=== PATIENT | female | born 1985 | race Caucasian/White ===

== ENCOUNTER → 2017-08-25 | Outpatient (CLI) | payer OTHER ==
--- NOTE | 2017-08-25 13:43 | MAMMOGRAPHY REPORT ---
ULTRASOUND OF LEFT BREAST: 08/25/2017 CLINICAL HISTORY: 32-year-old woman presents for evaluation of the left axilla. She noticed a lump i n the left axilla for the past 8 months but more recently developed pain in the area of lump. She wa s treated with Keflex for possible infection. The pain improved but the mass persisted. Question po ssibility of abscess versus a lymph node. The patient's was present in the room but the conversation/consultation was performed with fahad frazier use of a solar sales associate via telephone. COMPARISON: No prior exams were available for comparison. FINDINGS: Targeted ultrasound was performed in the area of lump pointed out by the patient, and also in the area of pain which traveled inferiorly from the axilla down into the posterior superior aspec t of the left breast. In the left axilla, 2 morphologically normal lymph nodes are identified. The first and most superficial lymph node measures 1.6 cm in length, with a thin cortex. The second lymp h node identified measures 6.9 mm with a thin cortex of 2 mm. Currently there is no evidence of susp icious lymphadenopathy or a drainable fluid collection in the left axilla. Additional scanning perfo rmed in the 12:00, 1:00 and 2:00 axes of the left breast in the areas of prior pain pointed out by fahad frazier patient, sonographically normal tissue is seen without a suspicious solid or cystic mass. Given the location of the lump high in the left axilla, it is doubtful this area would be included in the image mammographically and therefore mammography was deferred. IMPRESSION: ACR BI-RADS CATEGORY 2: BENIGN There is no sonographic evidence of malignancy, suspicious for adenopathy or drainable fluid collecti on in the area of lump and pain within the left axilla and far superior left breast, pointed out by alec freeman patient. Therefore, clinical follow-up is recommended and if the lump appears increased in size o r pain returns, consider repeat ultrasound. These results and recommendations were discussed with the patient and her via a [place]ic inter preter at the time of the exam. Alejandra Waite M.D. ay/:08/25/2017 10:54:52 Attending Technologist: Bala GARCIA)(M), [facility] Cap Blocker: Dr. Alejandra Waite, [facility] letter sent: Normal /2 BI-RADS Code: ACR BI-RADS Category 2: Benign
== END | disposition home or self-care (01) ==
LOC: C.MAMM 09:43
PROVIDERS: ATTEND Physician Assistant Medical
DX: N63.20 Unspecified lump in the left breast, unspecified quadrant (principal); N64.4 Mastodynia; M79.622 Pain in left upper arm

== ENCOUNTER 2017-12-10 09:42 | Emergency (ER) | payer OTHER ==
[~2017-12-10] VITALS: Ht 154.9 cm; Wt 59.2 kg
[2017-12-10 09:49] VITALS: TEMP 36.4; Ht 154.9 cm; Wt 59.2 kg
[2017-12-10] MEDS ORDERED: SODIUM CHLORIDE 0.9% 1000ML 2,000 ML IV STA (10:18)
[2017-12-10] MEDS ORDERED: ONDANSETRON INJ 2 MG/ML 2 ML VIAL IV STA (10:18)
[2017-12-10] MEDS ORDERED: ACETAMINOPHEN 500 MG TAB PO STA (10:18)
--- NOTE | 2017-12-10 10:36 | DIAGNOSTIC IMAGING REPORT ---
CHEST ONE VIEW PORTABLE CLINICAL HISTORY: Abdominal pain. COMPARISON STUDY: No previous studies for comparison. FINDINGS: Lung volumes are normal. No pneumothorax or pleural effusion is noted. Lungs are clear. Cardiac size is normal. Mediastinal contours are normal. There is no evidence for pulmonary edema. IMPRESSION: No acute cardiopulmonary findings. Electronically signed by: Van Robledo M.D. 12/10/2017 10:35 AM Dictated Date/Time: 12/10/2017 10:34 AM
[2017-12-10 11:00] LABS: BASO % 0.4 %; BASO ABS # 0.03 K/uL (0-0.2); EOS ABS # 0.07 K/uL (0-0.5); HEMATOCRIT 35.6 % (37-47); HEMOGLOBIN 11.9 g/dL (12.0-16.0); IG# 0.01 K/uL (0.00-0.02); LYMPH % 23.1 %; LYMPH ABS # 1.61 K/uL (1.2-3.4); MEAN CELL VOLUME 86.8 fL (80-100); MEAN CORPUSCULAR HGB CONC 33.4 g/dl (32-36); MEAN PLATELET VOLUME 10.5 fL (7.4-10.4); MONO % 6.8 %; MONO ABS # 0.47 K/uL (0.11-0.59); NEUT % 68.6 %; NEUT ABS # 4.77 K/uL (1.4-6.5); PLATELET COUNT 286 K/uL (130-400); RED CELL DISTRIBUTION WIDTH CV 13.3 % (11.5-14.5); RED CELL DISTRIBUTION WIDTH SD 42.5 fL (36.4-46.3); WHITE BLOOD COUNT 6.96 K/uL (4.8-10.8)
[2017-12-10 11:18] LABS: ALT/SGPT 17 U/L (12-78); AST/SGOT 11 U/L (15-37); BLOOD UREA NITROGEN 15 mg/dl (7-18); CALCIUM 8.8 mg/dl (8.5-10.1); CARBON DIOXIDE 26 mmol/L (21-32); CREATININE 0.86 mg/dl (0.60-1.20); GLUCOSE 89 mg/dl (70-99); LIPASE 178 U/L (73-393); POTASSIUM 3.9 mmol/L (3.5-5.1); SODIUM 135 mmol/L (136-145)
[2017-12-10 11:23] LABS: ALKALINE PHOSPHATASE 45 U/L (45-117)
--- NOTE | 2017-12-10 11:28 | EMERGENCY ROOM VISIT NOTE ---
History Report prepared by Frank: Camille Taylor Under the Supervision of: Dr. Byron Doyle M.D. First contact with patient: 10:01 Chief Complaint: ABDOMINAL PAIN Stated Complaint: FAINT, ABDOMINAL PAIN, PERIOD, VOMITING History of Present Illness The patient is a 32 year old female who presents to the Emergency Room with complaints of persistent lightheadedness since this morning. The patient states that she went to make coffee this morning when she felt lightheaded. She states that she went to lie down and put her legs up to rest. She thought the sensation passed, though she started to feel dizzy again and she called out for her for help. She states the lightheadedness is worsened when she is sitting up. The patient has a history of passing out when she sees blood. Her cycle started today and she states that it is normal heavy and painful. She states that she does not normally pass out from her own cycles. The reports that the patients PCP suspects that she has endometriosis. She states the cramping and bleeding that she is having is typical for her. He states that he found the patient on the floor awake, though she briefly passed out and her eyes rolled to the back of her head and her lips were quivering. He states that she then felt stiff, though everything resolved after one minute. She reports abdominal pain and a mild headache. She currently rates her pain a 10/10 in severity. She denies any nausea, vomiting, diarrhea, fevers, chills, congestion , or recent illness. She has been eating and drinking as normal. She denies any chance of and states that her cycle began on time. She reports giving four years ago. She was seen at her PCPs 20 days ago to have a laboratory workup, which showed normal. Source of History: patient, spouse/significant other Onset: this morning Position: head (brain) Symptom Intensity: 10/10 Quality: other (lightheadedness) Timing: other (persistent) Modifying Factors (Worsening): other (sitting up) Associated Symptoms: + headache, + abdominal pain, No fevers, No chills, No nausea, No vomiting, No diarrhea Note: She notes lightheadedness, passing out, and dizziness. She denies any congestion or recent illness. Review of Systems See HPI for pertinent positives and negatives. A total of ten systems were reviewed and were otherwise negative. Past Medical & Surgical Medical Problems: (1) Menorrhagia (2) Syncope Surgical Problems: (1) H/O section Family History No pertinent family history Social History Smoking Status: Never Smoker Smokeless Tobacco Use: No Alcohol Use: none Drug Use: none Marital Status: Housing Status: lives with significant other Occupation Status: unemployed Current/Historical Medications Scheduled Naproxen (Naproxen), 200 MG PO Q12 Allergies Coded Allergies: No Known Allergies (Unverified , 12/10/17) Physical Exam Vital Signs Date Time Temp Pulse Resp B/P (MAP) Pulse Ox O2 Delivery O2 Flow Rate FiO2 12/10/17 13:02 55 18 97/55 100 Room Air 12/10/17 12:15 70 18 98/56 100 Room Air 12/10/17 11:14 59 18 100/64 100 Room Air 12/10/17 09:49 36.4 70 17 103/66 100 Room Air Physical Exam GENERAL: Awake, alert, fatigued-appearing, in no distress HENT: Normocephalic, atraumatic. Oropharynx dry mucus membranes. EYES: Normal conjunctiva. Sclera non-icteric. NECK: Supple. No nuchal rigidity. FROM. No JVD. RESPIRATORY: Clear to auscultation. CARDIAC: Regular rate, normal rhythm. Extremities warm and well perfused. Pulses equal. ABDOMEN: Soft, non-distended. Mild lower abdominal tenderness, no peritoneal signs. No rebound or guarding. No masses. RECTAL: Deferred. MUSCULOSKELETAL: Chest examination reveals no tenderness. The back is symmetrical on inspection without obvious abnormality. There is no CVA tenderness to palpation. No joint edema. LOWER EXTREMITIES: Calves are equal size bilaterally and non-tender. No edema. No discoloration. NEURO: Normal sensorium. No sensory or motor deficits noted. normal cerebellar function with [id number], alternating palms. SKIN: No rash or jaundice noted. Medical Decision & Procedures ER Provider Diagnostic Interpretation: Radiology results as stated below per my review and radiologist interpretation: CHEST ONE VIEW PORTABLE CLINICAL HISTORY: Abdominal pain. COMPARISON STUDY: No previous studies for comparison. FINDINGS: Lung volumes are normal. No pneumothorax or pleural effusion is noted. Lungs are clear. Cardiac size is normal. Mediastinal contours are normal. There is no evidence for pulmonary edema. IMPRESSION: No acute cardiopulmonary findings. Electronically signed by: Van oRbledo M.D. 12/10/2017 10:35 AM Dictated Date/Time: 12/10/2017 10:[address] OF THE HEAD WITHOUT CONTRAST CLINICAL HISTORY: Fall. Headache. COMPARISON STUDY: No previous studies for comparison. CT DOSE: 947.73 mGy.cm TECHNIQUE: Helical axial images of the head were obtained without IV contrast. Automated exposure control was utilized for the study. A dose lowering technique was utilized adhering to the principles of ALARA. FINDINGS: No acute intracranial hemorrhage, midline shift or mass effect is present. There is prominence of the ventricular system for age. A 1.2 cm periventricular white matter hypodensity within the right frontal lobe is noted. There are no findings to suggest acute dural sinus thrombosis or acute territorial infarct. Visualized portions of the sinuses and mastoid air cells are clear. There is no calvarial fracture. IMPRESSION: 1. No acute intracranial hemorrhage. 2. No calvarial fracture. 3. Slight prominence of the ventricular system for age, a nonspecific finding of questionable clinical significance. 4. Mild periventricular white matter hypodensity within the right frontal lobe which is nonspecific but unlikely to be acute. Electronically signed by: Van Robledo M.D. 12/10/2017 11:50 AM Dictated Date/Time: 12/10/2017 11:[address] OF THE CERVICAL SPINE WITHOUT CONTRAST CLINICAL HISTORY: Neck pain following fall. COMPARISON STUDY: No previous studies for comparison. TECHNIQUE: Helical axial images of the cervical spine were obtained without IV contrast. Sagittal and coronal reconstructions were viewed. A dose lowering technique was utilized adhering to the principles of ALARA. FINDINGS: The craniocervical junction is intact. There is reversal of the normal cervical lordosis. There is no acute cervical spine fracture. There is no prevertebral edema. Lung apices are clear. There is no pneumothorax within the lung apices. IMPRESSION: No acute cervical spine fracture or subluxation. Electronically signed by: Van Robledo M.D. 12/10/2017 11:55 AM Dictated Date/Time: 12/10/2017 11:51 AM Laboratory Results 12/10/17 10:38 Red Blood Count 4.10, Mean Corpuscular Volume 86.8, Mean Corpuscular Hemoglobin 29.0, Mean Corpuscular Hemoglobin Concent 33.4, Mean Platelet Volume 10.5, Neutrophils (%) (Auto) 68.6, Lymphocytes (%) (Auto) 23.1, Monocytes (%) (Auto) 6.8, Eosinophils (%) (Auto) 1.0, Basophils (%) (Auto) 0.4, Neutrophils # (Auto) 4.77, Lymphocytes # (Auto) 1.61, Monocytes # (Auto) 0.47, Eosinophils # (Auto) 0.07, Basophils # (Auto) 0.03 12/10/17 10:38 Test 12/10/17 10:38 12/10/17 11:16 White Blood Count 6.96 K/uL (4.8-10.8) Red Blood Count 4.10 M/uL (4.2-5.4) Hemoglobin 11.9 g/dL (12.0-16.0) Hematocrit 35.6 % (37-47) Mean Corpuscular Volume 86.8 fL (80-100) Mean Corpuscular Hemoglobin 29.0 pg (25-34) Mean Corpuscular Hemoglobin Concent 33.4 g/dl (32-36) Platelet Count 286 K/uL (130-400) Mean Platelet Volume 10.5 fL (7.4-10.4) Neutrophils (%) (Auto) 68.6 % Lymphocytes (%) (Auto) 23.1 % Monocytes (%) (Auto) 6.8 % Eosinophils (%) (Auto) 1.0 % Basophils (%) (Auto) 0.4 % Neutrophils # (Auto) 4.77 K/uL (1.4-6.5) Lymphocytes # (Auto) 1.61 K/uL (1.2-3.4) Monocytes # (Auto) 0.47 K/uL (0.11-0.59) Eosinophils # (Auto) 0.07 K/uL (0-0.5) Basophils # (Auto) 0.03 K/uL (0-0.2) RDW Standard Deviation 42.5 fL (36.4-46.3) RDW Coefficient of Variation 13.3 % (11.5-14.5) Immature Granulocyte % (Auto) 0.1 % Immature Granulocyte # (Auto) 0.01 K/uL (0.00-0.02) Anion Gap 4.0 mmol/L (3-11) Est Creatinine Clear Calc Drug Dose 76.9 ml/min Estimated GFR () 102.9 Estimated GFR (Non- 88.8 BUN/Creatinine Ratio 17.6 (10-20) Calcium Level 8.8 mg/dl (8.5-10.1) Magnesium Level 2.0 mg/dl (1.8-2.4) Total Bilirubin 0.4 mg/dl (0.2-1) Direct Bilirubin < 0.1 mg/dl (0-0.2) Aspartate Amino Transf (AST/SGOT) 11 U/L (15-37) Alanine Aminotransferase (ALT/SGPT) 17 U/L (12-78) Alkaline Phosphatase 45 U/L (45-117) Troponin I < 0.015 ng/ml (0-0.045) Total Protein 9.0 gm/dl (6.4-8.2) Albumin 4.0 gm/dl (3.4-5.0) Lipase 178 U/L (73-393) Urine Color RED Urine Appearance CLOUDY (CLEAR) Urine pH 6.0 (4.5-7.5) Urine Specific [place] 1.025 (1.000-1.030) Urine Protein 2+ (NEG) Urine Glucose (UA) NEG (NEG) Urine Ketones NEG (NEG) Urine Occult Blood 3+ (NEG) Urine Nitrite NEG (NEG) Urine Bilirubin NEG (NEG) Urine Urobilinogen NEG (NEG) Urine Leukocyte Esterase NEG (NEG) Urine RBC >30 /hpf (0-4) Urine WBC 5-10 /hpf (0-5) Urine Epithelial Cells >30 /lpf (0-5) Urine Bacteria NEG (NEG) Urine Test NEG (NEG) Laboratory results reviewed by me Medications Administered Medications (Trade) Dose Ordered Sig/Louis Route Start Time Stop Time Status Last Admin Dose Admin Sodium Chloride 2,000 ml @ 999 mls/hr Q2H1M STAT IV 12/10/17 10:18 12/10/17 12:18 DC 12/10/17 10:40 999 MLS/HR Acetaminophen (Tylenol Tab) 1,000 mg NOW STAT PO 12/10/17 10:18 12/10/17 10:21 DC 12/10/17 10:42 1,000 MG Ondansetron HCl (Zofran Inj) 4 mg NOW STAT IV 12/10/17 10:18 12/10/17 10:21 DC 3/16/18 10:41 4 MG ECG Per My Interpretation Indication: weakness Rate (beats per minute): 58 Rhythm: sinus bradycardia Findings: no acute ischemic change, other (Normal axis) ED Course 1007: The patient was evaluated in room C11B. A complete history and physical exam was performed. 1018: Ordered Zofran 4 mg IV, Tylenol 1,000 mg PO, and Sodium Chloride 2,000 ml @ 999 mls/hr IV 1236: I reassessed the patient at this time. She is feeling better and resting comfortably. I discussed the results and treatment plan with the patient. I answered all pertaining questions that she had. She expressed understanding and verbalized agreement. The patient will be discharged home. Medical Decision I reviewed the patient's past medical history, medications, and the nursing notes as described above. Differential diagnosis: Etiologies such as vasovagal event, infection, hypoglycemia, electrolyte abnormalities, cardiac sources, intracerebral event, toxicologic, neurologic, as well as others were entertained. The patient is a 32-year-old woman with a past medical history of dysmenorrhea currently being evaluated for suspected endometriosis who presents emergency department with question syncopal episode in the setting of starting her menstrual cycle today with severe abdominal cramping per hpi. While the patient is fatigued appearing but no acute distress, afebrile stable vital signs. EKG unremarkable. Labs are unremarkable. She feeling significantly improved after IV fluid hydration. CT had performed given the question of a head strike when the was laying the patient down on the ground. Negative for ICH however does demonstrate enlarged ventricular system for age. Upon further discussion with the patient's reports that this had been commented on on a prior CT that was done [place]. Given likely chronic nature of this finding which may be related to her history of childhood meningitis no indication for further emergent workup. However patient to follow -up with her PCP/nightly for outpatient MRI for further clarification. During the patient's episode today most likely related to vasovagal/orthostatic episode in the setting of her dysmenorrhea. Patient reports her vaginal bleeding is typical for her menstrual cycle. Given unremarkable H&H no indication for pelvic exam at this time. Findings and plan for follow-up reviewed with patient. Patient agreeable and d/c'd per discharge instructions. Medication Reconcilliation Current Medication List: was personally reviewed by me Blood Pressure Screening Patient's blood pressure: Normal blood pressure Impression Primary Impression: Syncope Additional Impression: Dysmenorrhea Scribe Attestation The scribe's documentation has been prepared under my direction and personally reviewed by me in its entirety. I confirm that the note above accurately reflects all work, treatment, procedures, and medical decision making performed by me. Departure Information Dispostion Home / Self-Care Referrals No Doctor, Assigned (PCP) Forms Call Back Authorization, HOME CARE DOCUMENTATION FORM, IMPORTANT VISIT INFORMATION Patient Instructions ED Cramping Menstrual, ED Dehydration, ED Syncope Vasovagal, My [facility], Syncope Causes Additional Instructions Please follow up with S in the next 1-3 days for re-evaluation and to discuss non-emergent follow up imaging/MRI to further assess your enlarged ventricles ( which have been previously present) viewed on your CT scan today. Your symptoms today were likely due to pain from your menstrual cycle and mild dehydration. Otherwise, your exam, EKG, chest xray, lab results, and CT scan did not show signs of an emergent condition at this time. Acetaminophen or ibuprofen for pain and fevers as needed. Drink plenty of fluids to ensure hydration. Return to the emergency department for worsening symptoms as described in the accompanying instructions. Problem Qualifiers
--- NOTE | 2017-12-10 11:51 | DIAGNOSTIC IMAGING REPORT ---
CT OF THE HEAD WITHOUT CONTRAST CLINICAL HISTORY: Fall. Headache. COMPARISON STUDY: No previous studies for comparison. CT DOSE: 947.73 mGy.cm TECHNIQUE: Helical axial images of the head were obtained without IV contrast. Automated exposure control was utilized for the study. A dose lowering technique was utilized adhering to the principles of ALARA. FINDINGS: No acute intracranial hemorrhage, midline shift or mass effect is present. There is prominence of the ventricular system for age. A 1.2 cm periventricular white matter hypodensity within the right frontal lobe is noted. There are no findings to suggest acute dural sinus thrombosis or acute territorial infarct. Visualized portions of the sinuses and mastoid air cells are clear. There is no calvarial fracture. IMPRESSION: 1. No acute intracranial hemorrhage. 2. No calvarial fracture. 3. Slight prominence of the ventricular system for age, a nonspecific finding of questionable clinical significance. 4. Mild periventricular white matter hypodensity within the right frontal lobe which is nonspecific but unlikely to be acute. Electronically signed by: Van Robledo M.D. 12/10/2017 11:50 AM Dictated Date/Time: 12/10/2017 11:45 AM
--- NOTE | 2017-12-10 11:56 | DIAGNOSTIC IMAGING REPORT ---
CT OF THE CERVICAL SPINE WITHOUT CONTRAST CLINICAL HISTORY: Neck pain following fall. COMPARISON STUDY: No previous studies for comparison. TECHNIQUE: Helical axial images of the cervical spine were obtained without IV contrast. Sagittal and coronal reconstructions were viewed. A dose lowering technique was utilized adhering to the principles of ALARA. FINDINGS: The craniocervical junction is intact. There is reversal of the normal cervical lordosis. There is no acute cervical spine fracture. There is no prevertebral edema. Lung apices are clear. There is no pneumothorax within the lung apices. IMPRESSION: No acute cervical spine fracture or subluxation. Electronically signed by: Van Robledo M.D. 12/10/2017 11:55 AM Dictated Date/Time: 12/10/2017 11:51 AM
[2017-12-10] MEDS ORDERED: NAPR-1231 PO (12:35)
[2017-12-10 13:02] VITALS: BP 97/55; PULSE 55; O2SAT 100
== END 2017-12-10 13:14 | disposition home or self-care (01) ==
LOC: C.EDB 09:45 → MERGE 09:45 → C.EDC 13:14
DX: R55 Syncope and collapse (principal); N94.6 Dysmenorrhea, unspecified